=== PATIENT | male | born 1990 | race Caucasian/White ===

== ENCOUNTER 2025-03-07 21:31 | Emergency (ER) | payer MEDICAID, SELFPAY ==
--- OUTSIDE RECORDS SUMMARY | 2024-12-27 10:00 | XMS_ITS ---
Author Organization [facility] Address [address] [place] [id number] Care Team Providers Care Marketing Financial Analyst Name Role Phone Kristopher Bach Primary Care Provider [phone] Trever Malagon [phone] REASON FOR VISIT follow-up Social History Sex Assigned At : Social History Observation Description Sex Assigned At Male Encounters Encounter Location Date Provider Diagnosis [address] [address] 12/27/2024 Trever Jenkins Plan Of Treatment Next Appt Details Provider Name:Kristopher londono, 04/20/2025 01:30:00 PM, [address] [place] [address], [phone], Progress Notes * GRAHAM CARROLL LDOB: [birth year] (35 yo M)Acc No.[id number]:12/27/2024 Patient: WINNIE QUINTEROSEDWARD Galeano Provider: Marj Jenkins DO :1990 A ge:34 Y S ex:Male Date:12/27/2024 [address] [place] [place] Pcp:Kristopher Bach Structured Data:Pronouns : H e/Him/His Subjective: * Chief Complaints: * 1 . Follow-up. * Medical History: Objective: * Vitals: Assessment: Plan: * Treatment: * Images: Care Plan Details* * Electronic signature of Ramandeep Jenkins DO on 03/07/2025 at 09:36 PM CDT Sign off status: Pending * Provider: Marj Jenkins DO Date: 0 12/27/2024 Generated for Bell vale/Speedy/Anna on: 0 03/07/2025 09:36 PM CDT
--- OUTSIDE RECORDS SUMMARY | 2024-12-28 09:00 | XMS_ITS ---
Author Organization [facility] Address [address] [place] [id number] Care Team Providers Care Electronic Science Teacher Name Role Phone Kristopher Bach Primary Care Provider [phone] Trever Malagon [phone] REASON FOR VISIT 10/19 clinical trial Social History Sex Assigned At : Social History Observation Description Sex Assigned At Male Encounters Encounter Location Date Provider Diagnosis [address] [address] 12/28/2024 Trever Jenkins Plan Of Treatment Next Appt Details Provider Name:Kristopher londono, 04/20/2025 01:30:00 PM, [address] [place] [address], [phone], Progress Notes * GRAHAM CARROLL LDOB: [birth year] (35 yo M)Acc No.[id number]:12/28/2024 Progress Note Patient: GRAHAM QUINTEROS Provider: Marj Jenkins DO :1990 A ge:34 Y S ex:Male Date:12/28/2024 Address:[address] [place], [place]-[phone] Pcp:Kristopher Bach Structured Data:Pronouns : H e/Him/His Subjective: * Chief Complaints: * 1 . 10/19 clinical trial. * Medical History: Objective: * Vitals: Assessment: Plan: * Treatment: * Images: Care Plan Details* * Electronic signature of Ramandeep Jenkins DO on 03/07/2025 at 09:35 PM CDT Sign off status: Pending * Provider: Marj Jenkins DO Date: 0 12/28/2024 Generated for Bell vale/Speedy/Anna on: 0 03/07/2025 09:35 PM CDT
--- OUTSIDE RECORDS SUMMARY | 2025-01-25 10:00 | XMS_ITS ---
Author Organization [facility] Address [address] [place] [phone] Care Team Providers Care Natural Resources Specialist Name Role Phone Kristopher Bach Primary Care Provider [phone] Trever Malagon [phone] REASON FOR VISIT follow-up Social History Sex Assigned At : Social History Observation Description Sex Assigned At Male Encounters Encounter Location Date Provider Diagnosis [address] [address] 01/25/2025 Trever Jenkins Plan Of Treatment Next Appt Details Provider Name:Kristopher londono, 04/20/2025 01:30:00 PM, [address] [place] [address], [phone], Progress Notes * GRAHAM CARROLL LDOB: [birth year] (35 yo M)Acc No.[id number]:01/25/2025 Patient: WINNIE QUINTEROSEDWARD Galeano Provider: Marj Jenkins DO :1990 A ge:34 Y S ex:Male Date:01/25/2025 [address] [phone] Pcp:Kristopher Bach Structured Data:Pronouns : H e/Him/His Subjective: * Chief Complaints: * 1 . Follow-up. * Medical History: Objective: * Vitals: Assessment: Plan: * Treatment: * Images: Care Plan Details* * Electronic signature of Ramandeep Jenkins DO on 03/07/2025 at 09:36 PM CDT Sign off status: Pending * Provider: Marj Jenkins DO Date: 0 01/25/2025 Generated for Bell vale/Speedy/Anna on: 0 03/07/2025 09:36 PM CDT
[2025-03-07 21:34] VITALS: BP 145/72; PULSE 102; RESP 18; TEMP 36.8; O2SAT 100; BMI 31.5
--- OUTSIDE RECORDS SUMMARY | 2025-03-07 21:36 | XMS_ITS | Patient Health Record ---
Author Organization [facility] Address [address] [place] [address] Care Team Providers Care Button Decorating Machine Operator Name Role Phone Kristopher Bach Primary Care Provider Trever Jenkins Unavailable [phone] Allergies No Known Allergies Results Component Value Reference Range Notes HCV RNA by PCR, Qn Rfx Wilma (Not yet reviewed by provider) Interpretation: Performing Lab: Notes/Report: Hepatitis C Quantitation UNDETECTED HCV RNA by PCR, Qn Rfx Wilma (Not yet reviewed by provider) Interpretation: Performing Lab: Notes/Report: Hepatitis C Quantitation [id number] Reason For Referral Reason Refer to [facility] for janay er [place]. Hep C with fibrosis Diagnosis 1 Liver fibrosis (K74. 00) Referral Organization [facility] Referring Provider First Name Kristopher Referring Provider Last Name Isreal Referring Provider Speciality Family Med isacc Referred Provider Specialty Radiology General Notes Shavonne Nicolas 08:35:48 AM >Appt made 11/29 @ 10:45, Dory Bingham 11/12/2024 08:37:37 AM >efaxed referral to [facility] p [phone] F [phone], Jena Ramirez 12/15/2024 11:10:48 AM >LVM to call backFidencio Kyesha 12/28/2024 04:40:09 PM >letter sent Clinical Notes Shavonne Nicolas 04:40:48 PM > Referral Priority Routine Social History Tobacco Use: Social History Observation Description Date Details (start date - stop date) Current Smoker NA - NA Sex Assigned At : Social History Observation Description Sex Assigned At Male Smoking Question Answer Notes Are you a: Current smoker SBIRT (2018 Edition) Question Answer Notes Patient refused/declined SBIRT screening at this time? No 1. How often do you have a drink containing alco hol? Never 3. How often do you have five or more drinks on one occasion? Never SCORE 0 Interpretation Negative How many times in the past y ear have you used an illegal drug or used a prescription medication for non-medical reasons? 1 or more Total Count 1 Interpretation Positive PRAPARE Question Answer Notes Date Completed/Updated: 11/03/2024 What is your current housing situation? I have h ousing Are you worried about losing your housing? No What is the highest level of school that you have finished? 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 Check all that apply I do not have problems meeting my needs Has lack of transportation k ept you from medical appointments, meetings, work or from getting things needed for daily living? No How often do you see or talk to people that you care about and feel close to? (For example: talking to friends on the phone, visiting friends or family, going to caodaism or club meetings) More than 5 times a week How stressed are you? Stress is when someone feels tense, nervous, anxious, or cant sleep at night because their mind is troubled Somewhat In the past year have you sp ent more than 2 nights in a row in a prison, senior living, long term center, or juvenile correctional facility? Yes What was your release date? 03/22/2024 Are you a refugee? No What country are you from? [place] Do you feel physically and e motionally safe where you currently live? Yes In the past year, have you b een afraid of your partner or ex-partner? No PRAPARE Score: 5 Problems Problem Type SNOMED Code ICD Code Onset Dates Problem Status W/U Status Risk Notes Problem Chronic hepatitis C without hepatic coma (B18.2) Active confirmed Problem Hepatic fibrosis (disorder) (19790429) Liver fibrosis (K74.00) Active confirmed Vital Signs Heart Rate 102 /min 11/03/2024 Temperature 97.9 degrees Fahrenheit 11/03/2024 Height-cm 182.88 cm 11/03/2024 Blood pressure diastolic 78 mm Hg 11/03/2024 Oximetry 97 % 11/03/2024 Weight-kg 99.56 kg 11/03/2024 Height 72 in 11/03/2024 Blood pressure systolic 123 mm Hg 11/03/2024 Weight 219.5 lbs 11/03/2024 BMI 29.77 kg/m2 11/03/2024 Encounters Encounter Location Date Provider Diagnosis [address] [address] 11/11/2024 Trever Jenkins [address] [address] 11/30/2024 Trever Alice [address] [address] 11/30/2024 Trever Alice [address] [address] 12/14/2024 Trever Alice [address] [address] 12/27/2024 Trever Jenkins [address] [address] 11/03/2024 Kristopher Thedinger Chronic hepatitis C without hepatic coma B18.2 and Imprisonment and other incarceration Z65.[address] [address] 11/04/2024 Kristopher Thedinger Chronic hepatitis C without hepatic [facility] [address] 11/08/2024 Kristopher Thedinger [address] [address] 11/11/2024 Kristopher Theding Liver fibrosis K74.[address] [address] 11/17/2024 Kristopher Thedinger [facility] [address] 12/21/2024 Kristopher Bach [address] [address] 01/04/2025 Kristopher Bach [address] [address] 01/18/2025 Kristopher Bach [address] [address] 01/21/2025 Kristopher Bach Assessments Encounter Date Diagnosis (ICD Code) Assessment Notes Treatment Notes Treatment Clinical Notes Section Notes 11/03/2024 Chronic hepatitis C without hepatic coma (ICD-10 - B18.2) 11/04/2024 Chronic hepatitis C without hepatic coma (ICD-10 - B18.2) 11/11/2024 Liver fibrosis (ICD-10 - K74.00) 11/03/2024 Imprisonment and other incarceration (ICD-10 - Z65.1) Plan Of Treatment Pending Test Test Name Order Date HCV RNA by PCR, Qn Rfx Wilma 11/11/2024 HCV RNA by PCR, Qn Rfx Wilma 12/14/2024 HCV RNA by PCR, Qn Rfx Wilma 12/27/2024 Rapid HIV 11/03/2024 Q CMP (88044) 11/03/2024 Q CBC (ROUTINE) (1759) 11/03/2024 Q HEPATITIS B SURFACE ANTIBODY QL (499) 11/03/2024 Q HEPATITIS B CORE ANTIBODY (IGM) (4848) 11/03/2024 Q HEPATITIS B SURFACE ANTIGEN W/REFL CON FIRM (498) 11/03/2024 Q HEPATITIS C VIRAL LOAD QUANT PCR (3564 5) 11/03/2024 Q HEPATITIS C VIRAL RNA GENOTYPE, LIPA ( [address]) 11/04/2024 Q LIVER FIBROSIS, FIBROTEST ACTITEST LORENZANA EL (13214) 11/04/2024 Future Test Test Name Order Date Ultrasound : Abdominal 11/11/2024 Next Appt Details Provider Name:Kristopher londono, 04/20/2025 01:30:00 PM, [address] [place] [address], [phone], Insurance Providers Payer Name Payer Address Payer Phone Subscriber Number Group Number Insured Name Patient Relationship to Insured Coverage Start Date Coverage End Date [facility] [address] [place], [place] [id number] [phone] [id number] GRAHAM CARROLL Self - patient is the insured [facility] [address] [place] [id number] GRAHAM CARROLL Self - patient is the insured Medical (General) History Surgical History Surgery Date(Month/Year) tonsillectomy and adenoidectomy Appendectomy
--- OUTSIDE RECORDS SUMMARY | 2025-03-07 21:36 | XMS_ITS | Clinical Summary ---
Author Organization [facility] Address [address] [place] [id number] Care Team Providers Care Rn Maternity Name Role Phone Unavailable Primary Care Provider Unavailabl e Allergies No known active allergies Medications albuterol (PROAIR/PROVENTI L/VENTOLIN) 90 mcg/actuation HFA inhaler Inhale 2 puffs every 6 (six) hours as needed for wheezing. 6.7 g 09/09/2024 Active Encounters Date Type Department Care Team Description 12/13/[address] [address] Yvette Manzo 12/12/2024 6:33 PM CDT - 12/12/2024 7:47 PM CDT Emergency [address] [address] Discharge Disposition: Left Without Being Seen from Last 3 Months Social History Tobacco Use Types Packs/Day Years Used Date Smoking Tobacco: Every Day Cigarettes Passive Smoke Exposure: Never Smokeless Tobacco: Never Tobacco Cessation:Ready to Q uit: Not Asked; Counseling Given: Not Answered Alcohol Use Standard Drinks/Week Comments Never 0 (1 standard drink = 0.6 oz pur e alcohol) PHQ-2 Answer Date Recorded Part 1 Score: 0 12/12/2024 [facility] Transportation Needs Answer Date R ecorded Transportation Needs Not on file 09/09/2024 In the next 24 hours or afte r discharge, are you in a situation where housing, food, or transportation is a concern, or does the patient demonstrate the inability to care for self that could result in imminent harm No 09/09 [facility] Food Insecurity Answer Date Record ed Food Insecurity Not on file 09/09/2024 In the next 24 hours or afte r discharge, are you in a situation where housing, food, or transportation is a concern, or does the patient demonstrate the inability to care for self that could result in imminent harm No 09/09 [facility] Housing Answer Date Recorded Housing Insecurity Not on file 09/09/2024 In the next 24 hours or afte r discharge, are you in a situation where housing, food, or transportation is a concern, or does the patient demonstrate the inability to care for self that could result in imminent harm No 09/09 Sex and Gender Information Value Date Recorded Sex Assigned at Not on file Legal Sex Male 10:09 AM RIPSAW GRADER Gender Identity Not on file Sexual Orientation Not on file Last Filed Vital Signs Vital Sign Reading Time Taken Comments Blood Pressure 124/93 12/12/2024 7:13 PM CDT Pulse 100 12/12/2024 7:13 PM CDT Temperature 36.4 C (97.5 F) 12/12/2024 7:13 PM CDT Respiratory Rate 22 12/12/2024 7:13 PM CDT Oxygen Saturation 98% 12/12/2024 7:13 PM CDT Inhaled Oxygen Concentration - - Weight 99.8 kg (220 lb) 12/12/2024 7:13 PM CDT Height 177.8 cm (5' 10 ) 06/02/2024 10:17 AM RIPSAW GRADER Body Mass Index 31.57 06/02/2024 10:17 AM RIPSAW GRADER Plan of Treatment Health Maintenance Due Date Last Done Comments Hepatitis C Screen 1990 Td/Tdap# 1990 Tobacco Cessation Counseling # 1990 Social Drivers of Health# 2007 Pneumococcal Vaccine: Pediat rics (0 to 5 Years) and At-Risk Patients (6 to 49 Years) (1 of 2 - PCV) 02/04/2008 HPV Vaccine (1 - 3-dose SCDM series) 02/04/2016 COVID-19 Vaccine ( - 2023-2 5 season) 2024 Influenza Vaccine (#1) 2025 Hepatitis B Vaccine Completed 03/04/2003, 09/21/2002, 04/01/2002, Additional history exists Insurance [facility] [place] [facility] OUT OF [facility]A [facility] OF [place] BLUE CHOICE [facility]ASIDY DIAZ OUT OF [facility]A [facility]
[2025-03-07 23:09] VITALS: BP 130/86; PULSE 82; O2SAT 92
[2025-03-07 23:36] LABS: Hematocrit 43.9 % (37-53); Hemoglobin 15.10 g/dL (11.27-16.99); Mean Corpuscular HGB Conc 34.4 g/dL (30-55); Mean Corpuscular Hemoglobin 31.9 pg (27-33); Mean Corpuscular Volume 92.6 fl (82-101); Nucleated Red Blood Cells % 0 %; Platelet Count 277 10^3/cmm (157-399); Red Blood Count 4.74 10^6/uL (3.85-5.65); White Blood Count 7.17 10^3/uL (3.29-11.43)
[2025-03-07 23:43] LABS: Glucose Urine UA Negative (Normal); Nitrate Urine Negative (Negative)
[2025-03-07 23:48] LABS: Add Urine Microscopic? YES; Specific Gravity, Urine 1.032 (1.005-1.030)
[2025-03-07 23:50] LABS: Alanine Aminotransferase 87 U/L (0-41); Albumin Level 4.0 g/dL (3.5-5.2); Alkaline Phosphatase 74 U/L (40-130); Anion Gap 12.3 (5-19); Aspartate Amino Transferase 69 U/L (0-40); Blood Urea Nitrogen 11 mg/dL (6-20); Calcium 8.6 mg/dL (8.5-10.5); Carbon Dioxide 26 mmol/L (22-29); Chloride 105 mmol/L (98-107); Creatinine Clr Calc Pharmacy 172.7473; Globulin 2.7 g/dL (1.3-4.6); Glucose 129 mg/dL (65-115); Lipase 24 U/L (13-60); Osmolality Calculated 291 mOsm/kg (285-295); Potassium 3.3 mmol/L (3.5-5.1); Sodium 140 mmol/L (136-145); Total Protein 6.7 g/dL (6.6-8.7)
--- NOTE | 2025-03-07 23:59 | CTR_ITS ---
PROCEDURE INFORMATION: Exam: CT Abdomen And Pelvis Without Contrast Exam date and time: 03/08/2025 12:24 AM Age: 35 years old Clinical indication: Abdominal pain; Right; Prior surgery; Surgery date: 6+ months; Surgery type: Appy; RT flank pain with hematuria; Additional info: Suspected renal colic TECHNIQUE: Imaging protocol: Computed tomography of the abdomen and pelvis without contrast. Radiation optimization: All CT scans at this facility use at least one of these dose optimization techniques: automated exposure control; mA and/or kV adjustment per patient size (includes targeted exams where dose is matched to clinical indication); or iterative reconstruction. COMPARISON: No relevant prior studies available. RADIATION DOSE METRICS: Total DLP (mGy-cm): 622.77 FINDINGS: Liver: Fatty liver. Gallbladder and biliary ducts: Normal. No calcified stones. No ductal dilation. Pancreas: Normal. No ductal dilation. Spleen: Normal. No splenomegaly. Adrenal glands: Normal. No mass. Kidneys and ureters: Nonobstructing right renal calculi. Largest stone in the renal pelvis measuring up to 8 mm. Query tiny nonobstructing left renal calculi. Stomach and bowel: Unremarkable. No obstruction. No mucosal thickening. Appendix: No evidence of appendicitis. Intraperitoneal space: Unremarkable. No free air. No significant fluid collection. Vasculature: Unremarkable. No abdominal aortic aneurysm. Lymph nodes: Unremarkable. No enlarged lymph nodes. Urinary bladder: Unremarkable as visualized. Reproductive: Unremarkable as visualized. Bones/joints: Unremarkable. No acute fracture. Soft tissues: Unremarkable. CT/CT kidney stone [id number] IMPRESSION: Nonobstructing right renal calculi. Largest stone in the renal pelvis measuring up to 8 mm. No definitive evidence of acute obstructive uropathy.
--- NOTE | 2025-03-08 00:40 | ED_ITS ---
HPI - Nausea/Vomiting/Diarrhea 2 General: Chief complaint: Nausea/Vomiting/Diarrhea Stated complaint: N/V, Cold Chills, headache, Sore throat, Brown UA Time Seen by Provider: 03/07/25 22:56 History of Present Illness: Patient is 35-year-old gentleman has had 1 day of awakening nausea, refractory vomiting. He has not had anything since pizza rolls this morning, and has since vomited this up. He has not had any change in his stools. No abdominal pain. Ongoing emesis is a #1 issue. No sick contact. No change in what he was eating yesterday. Urine became very dark today. Denies history of alcohol intake. Associated nausea: Yes Associated symtoms: Reports dysuria and nausea; Denies anxiety, change in vision, chest pain, headache(s) or palpitations Related Data Previous Rx's ?Medication ?Instructions ?Recorded cefdinir 300 mg capsule 300 mg PO BID 10 days #20 ca ps 03/08/25 nystatin 100,000 unit/mL oral 4 ml PO QID 10 days #160 mL 03/08/25 suspension ondansetron 4 mg disintegrating 4 mg PO Q8H PRN nausea and 03/08/25 tablet vomiting 4 days #14 tabs Allergies Allergy/AdvReac Type Severity Reaction Status Date / Time No Known Allergies Allergy Verified 03/07/25 21:39 Review of Systems 2 General: Reports: 10 or more systems reviewed and unremarkable except in HPI and below Eyes: Denies: change in vision or blurry vision ENMT: Denies: throat pain or mouth pain Card: Denies: chest pain or palpitations Resp: Denies: dyspnea or non-productive cough GI: Reports: nausea and vomiting; Denies: abdominal pain : Reports: flank pain and dysuria; Denies: difficulty urinating Musc: Denies: neck pain, back pain or extremity pain Skin/Breast: Denies: rash or pruritus Neuro: Denies: headache(s) or numbness in extremities Psych: Denies: anxiety or depression Physical Exam 2 Const: COMMON NORMALS: patient oriented x3 HENMT: COMMON NORMALS: normocephalic and atraumatic HEAD & SCALP: n ormocephalic and atraumatic MOUTH: moist mucous membranes abnormal Details: cracked OTHER: oral sarabjit Lymph: LYMPHATIC: no lymphadenopathy noted Chest: COMMONS NORMALS: normal inspection of the chest and normal palpation of entire chest wall Resp: COMMON NORMALS: normal respiratory effort, No retractions and clear to auscultation bilaterally AUSCULTATION: clear to auscultation bilaterally Cardio: COMMON NORMALS: regular rate and regular rhythm RATE: regular rate RHYTHM: regular rhythm GI: COMMON NORMALS: Normal to inspection, nondistended, normoactive bowel sounds present, Soft to palpation, non-tender and No hepatosplenomegaly present PALPATION: Yes Soft to palpation and Yes No hepatosplenomegaly present : COMMON NORMALS: Yes no CVA tenderness BLADDER/KIDNEY EXAM: Yes no CVA tenderness Back/Pelvis: COMMON NORMALS: no CVA tenderness Extremity: COMMON NORMALS: normal to inspection, full ROM and capillary refill normal Neuro: COMMON NORMALS: patient oriented x3 and CN's II-XII intact bilaterally Psych: COMMON NORMALS: mental status grossly normal and cooperative Course 2 Vital Signs: Vital signs: Vital Signs Temperature 98.2 F 03/07/25 21:34 Pulse Rate 102 H 03/07/25 21:34 Respiratory Rate 18 03/07/25 21:34 Blood Pressure 145/72 03/07/25 21:34 Pulse Oximetry 100 03/07/25 21:34 Oxygen Delivery Me thod Room Air 03/07/25 21:34 MDM - Nausea/Vomiting/Diarrhea Medical Decision Making Patient is 35-year-old male with hematuria, and transaminitis, thrush. He certainly will need additional testing such as HIV screening, hepatitis. CT of abdomen pelvis is pending with his association of hematuria, then further decision making Another consideration was a tickborne illness, however does not completely fit the profile. CT was negative for obstructive uropathy. I believe this is secondary to gastroenteritis, nausea, and vomiting that could be associated with viral. Lab Data 03/07/25 23:20 03/07/25 23:20 Radiology Impressions Abdomen/Pelvis CT 03/07/25 23:59 IMPRESSION: Nonobstructing right renal calculi. Largest stone in the renal pelvis measuring up to 8 mm. No definitive evidence of acute obstructive uropathy. Laboratory Results WBC 7.17 10^3/uL (3.29-11.43) 03/07/25 23:20 RBC 4.74 10^6/uL (3.85-5.65) 03/07/25 23:20 Hgb 15.10 g/dL (11.27-16.99) 03/07/25 23:20 Hct 43.9 % (37-53) 03/07/25 23:20 MCV 92.6 fl (82-101) 03/07/25 23:20 MCH 31.9 pg (27-33) 03/07/25 23:20 MCHC 34.4 g/dL (30-55) 03/07/25 23:20 RDW 12.2 % (12.1-15.1) 03/07/25 23:20 Plt Count 277 10^3/cmm (157-399) 03/07/25 23:20 MPV 10.5 fL (7.4-10.4) H 03/07/25 23:20 Neut % (Auto) 70.3 % 03/07/25 23:20 Lymph % (Auto) 12.6 % 03/07/25 23:20 Becker % (Auto) 8.5 % 03/07/25 23:20 Eos % (Auto) 7.9 % 03/07/25 23:20 Baso % (Auto) 0.6 % 03/07/25 23:20 Neut # (Auto) 5.04 10^3/uL (1.8-7.7) 03/07/25 23:20 Lymph # (Auto) 0.9 10^3/uL (0.8-4.8) 03/07/25 23:20 Becker # (Auto) 0.6 10^3/uL (0.2-0.9) 03/07/25 23:20 Eos # (Auto) 0.6 10^3/uL (0.0-0.8) 03/07/25 23:20 Baso # (Auto) 0.0 10^3/uL (0.0-0.1) 03/07/25 23:20 Nucleated RBC % (auto) 0 % 03/07/25 23:20 Nucleated RBCs # 0.0 /100WBC 03/07/25 23:20 Sodium 140 mmol/L (136-145) 03/07/25 23:20 Potassium 3.3 mmol/L (3.5-5.1) L 03/07/25 23:20 Chloride 105 mmol/L (98-107) 03/07/25 23:20 Carbon Dioxide 26 mmol/L (22-29) 03/07/25 23:20 Anion Gap 12.3 (5-19) 03/07/25 23:20 BUN 11 mg/dL (6-20) 03/07/25 23:20 Creatinine 0.7 mg/dL (0.7-1.2) 03/07/25 23:20 GFR Calculation 127.6 mL/min (90-130) 03/07/25 23:20 Glucose 129 mg/dL (65-115) H 03/07/25 23:20 Calculated Osmolality 291 mOsm/kg (285-295) 03/07/25 23:20 Calcium 8.6 mg/dL (8.5-10.5) 03/07/25 23:20 Total Bilirubin 0.6 mg/dL (0.15-1.2) 03/07/25 23:20 AST 69 U/L (0-40) H 03/07/25 23:20 ALT 87 U/L (0-41) H 03/07/25 23:20 Alkaline Phosphatase 74 U/L (40-130) 03/07/25 23:20 Total Protein 6.7 g/dL (6.6-8.7) 03/07/25 23:20 Albumin 4.0 g/dL (3.5-5.2) 03/07/25 23:20 Globulin 2.7 g/dL (1.3-4.6) 03/07/25 23:20 Lipase 24 U/L (13-60) 03/07/25 23:20 Urine Color Dark yellow (Yellow) A 03/07/25 23:34 Urine Appearance Cloudy (CLEAR) A 03/07/25 23:34 Urine pH 6.0 (5-7) 03/07/25 23:34 Ur Specific [place] 1.032 (1.005-1.030) H 03/07/25 23:34 Urine Protein 2+ (Negative) A 03/07/25 23:34 Urine Glucose (UA) Negative (Normal) 03/07/25 23:34 Urine Ketones Trace (Negative) 03/07/25 23:34 Urine Blood 3+ (Negative) A 03/07/25 23:34 Urine Nitrate Negative (Negative) 03/07/25 23:34 Urine Bilirubin Negative (Negative) 03/07/25 23:34 Urine Urobilinogen 2.0 mg/dL (Negative) H 03/07/25 23:34 Ur Leukocyte Esterase Trace (Negative) A 03/07/25 23:34 Urine RBC >100 /hpf (0-2) H 03/07/25 23:34 Urine WBC 0-5 /hpf (0-5) 03/07/25 23:34 Ur Squamous Epith Cells 0-5 /hpf (0-5) 03/07/25 23:34 Amorphous Sediment Not Reportable 03/07/25 23:34 Urine Bacteria None seen /hpf (NONE) 03/07/25 23:34 Hyaline Casts 2.05 /lpf 03/07/25 23:34 All radiology interpretation(s) finalized by discharge Discharge Plan Discharge Patient Disposition: Home Clinical Impression: Transaminitis, Hypokalemia, Gastroenteritis, Candidiasis of mouth Hematuria Qualifiers: Hematuria type: gross Qualified Code(s): R31.0 - Gross hematuria Condition: Stable Prescriptions: New cefdinir 300 mg capsule 300 mg PO BID 10 Days Qty: 20 0RF nystatin 100,000 unit/mL suspension 4 ml PO QID 10 Days Qty: 160 0RF Rx Instructions: swish and swallow ondansetron 4 mg tablet,disintegrating 4 mg PO Q8H PRN (Reason: nausea and vomiting) 4 Days Qty: 14 0RF Discharge Orders: Discharge ED (Routine); Ordered 03/08/25 Ordered By: Liliana Lu Discharge Diet: Usual diet Discharge Activity: Resume usual activity Patient Instructions: Hematuria (ED), Transaminitis (ED), Patient Portal & [facility] Instructions Activity Restrictions/Additional Instructions: Take antibiotics as prescribed. They have been sent to the pharmacy. Take a probiotic or active culture yogurt to avoid infectious diarrhea You will need to follow-up with your primary care physician regarding today's visit. Your liver enzymes are elevated, and your HIV will need to be followed up in in 1 month. Print Language: Albanian Coding Level of Care Code ED [employer] for Astrid Diaz
[2025-03-08 01:09] LABS: Hepatitis A Antibody IgM Non-Reactive (Nonreactive); Hepatitis B Surface Antigen Non-Reactive (Nonreactive)
[2025-03-08] MEDS: orphenadrine 30 mg/mL Inj 2 mL 60 MG IV (01:11)
[2025-03-08] MEDS: cefTRIAXone 1,000 MG in water for injection-sterile 2.1 ML 2.1 MG IM (01:16)
[2025-03-08] MEDS: ondansetron hcl ODT 4 mg Tab PO (01:17)
[2025-03-08 01:22] LABS: HIV 1 & 2 Antigen Non-Reactive (Non-Reactiv)
[2025-03-08 01:32] VITALS: BP 142/78; PULSE 67; O2SAT 96
--- NOTE | 2025-03-08 08:54 | DCPLANNER ---
Needing pcp sent to office- Patient is 35-year-old male with hematuria, and transaminitis, thrush. He certainly will need additional testing such as HIV screening, hepatitis. CT of abdomen pelvis is pending with his association of hematuria, then further decision making Another consideration was a tickborne illness, however does not completely fit the profile. CT was negative for obstructive uropathy. I believe this is secondary to gastroenteritis, nausea, and vomiting that could be associated with viral.
[2025-03-09 12:29] LABS: HEP C RNA Viral Load Quant 30400000 IU/mL (NOT DETECTED); HEP C RNA Viral Load Quant 7.48 Log IU/mL (NOT DETECTED)
== END 2025-03-08 01:30 | disposition home or self-care (01) ==
PROVIDERS: Emergency Provider Physician Assistant
DX: R74.01 Elevation of levels of liver transaminase levels (principal); E87.6 Hypokalemia; K52.9 Noninfective gastroenteritis and colitis, unspecified; B37.0 Candidal stomatitis; R31.0 Gross hematuria
CPT/HCPCS: 36415; 74176; 80053; 80074; 81001; 83690; 85025; 87086; 87522; 87806; 96372; 96374; 96375; 99285; J0696; J1885; J2360; J7030; J9999; Q0162